=== PATIENT | female | born 1985 | race African-American/Black ===

== ENCOUNTER 2018-04-13 10:46 | Emergency (ER) | payer OTHER ==
[~2018-04-13] VITALS: Ht 162.6 cm; Wt 60.0 kg
[2018-04-13] MEDS ORDERED: IBUPROFEN 600MG TABLET PO ONE (12:30)
[2018-04-13 12:50] VITALS: BP 108/74
== END 2018-04-13 14:41 | disposition home or self-care (01) ==
LOC: ER 10:57
DX: S93.402A Sprain of unspecified ligament of left ankle, initial encounter (principal); S93.602A Unspecified sprain of left foot, initial encounter; W01.0XXA Fall on same level from slipping, tripping and stumbling without subsequent striking against object, initial encounter; Y93.9 Activity, unspecified; Y92.9 Unspecified place or not applicable
CPT/HCPCS: 73610; 73630; 81025; 99284